=== PATIENT | male | born 2005 | race Hispanic/Latino ===

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

== ENCOUNTER 2024-08-01 11:33 | Emergency (ER) | payer OTHER, SELFPAY ==
[2024-08-01] MEDS ORDERED: Ibuprofen 200 MG TAB ONE (12:26)
== END 2024-08-01 13:20 | disposition home or self-care (01) ==
LOC: CSHERS 11:33
DX: M51.34 Other intervertebral disc degeneration, thoracic region (principal)
CPT/HCPCS: 72128